=== PATIENT | female | born 1985 | race American Indian/Alaskan Native ===

== ENCOUNTER 2017-09-27 11:04 | Emergency (ER) | payer SELFPAY ==
[2017-09-27] MEDS ORDERED: TYLENOL ONE (13:56)
[2017-09-27] MEDS ORDERED: TYLENOL PO ONE (14:00)
[2017-09-27] MEDS ORDERED: MOTRIN PO ONE (14:35)
--- NOTE | 2017-09-27 15:04 | Emergency Department Report ---
ED Lower Extremity HPI - General Chief Complaint: Extremity Injury, Lower Stated Complaint: ANKLE INJURY Time Seen by Provider: 09/27/17 14:26 Source: patient Mode of arrival: Ambulatory Limitations: No Limitations - History of Present Illness Initial Comments: This is a 32-year-old female nontoxic, well nourished in appearance, no acute signs of distress presents to the ED with c/o of bilateral ankle pain (more on the left), left foot pain, and right tib/fib pain status post fall that occurred yesterday. Patient stated that she feel into a mattress and foundation sewer. Patient stated that she did not have any trauma to the head or any other extremities. Patient denies any joint redness, joint swelling, fever, chills, nausea, vomiting, chest pain or shortness breath. Patient denies abnormal or decreased gait. Patient denies any allergies or PMH. MD Complaint: leg injury, ankle injury, foot injury, fall -: Last night Injury: Leg: Left, Ankle: Right, Left, Foot: Right Type of Injury: inversion Place: street/outdoors Severity: mild Severity scale (0 -10): 8 Improves With: immobilization Worsens With: weight bearing, movement Context: fall Associated Symptoms: swelling, able to partially bear weight, ambulatory. denies: snap/pop sensation, numbness, tingling, unable to bear weight - Related Data Previous Rx's Medication Instructions Recorded Last Taken Type Ibuprofen [Motrin] 600 mg PO Q8H PRN #30 tablet 09/27/17 Unknown Rx Allergies Allergy/AdvReac Type Severity Reaction Status Date / Time No Known Allergies Allergy Unverified 09/27/17 11:13 ED Review of Systems ROS: Stated complaint: ANKLE INJURY Other details as noted in HPI Constitutional: denies: chills, fever Eyes: denies: eye pain, eye discharge, vision change ENT: denies: ear pain, throat pain Respiratory: denies: cough, shortness of breath, wheezing Cardiovascular: denies: chest pain, palpitations Endocrine: no symptoms reported Gastrointestinal: denies: abdominal pain, nausea, diarrhea Genitourinary: denies: urgency, dysuria, discharge Musculoskeletal: arthralgia. denies: back pain, joint swelling Skin: denies: rash, lesions Neurological: denies: headache, weakness, paresthesias Psychiatric: denies: anxiety, depression Hematological/Lymphatic: denies: easy bleeding, easy bruising ED Past Medical Hx - Past Medical History Previous Medical History?: No - Surgical History Past Surgical History?: Yes Additional Surgical History: right hand surgery - Social History Smoking Status: Current Every Day Smoker Substance Use Type: Alcohol, Marijuana - Medications Home Medications: Home Medications Medication Instructions Recorded Confirmed Last Taken Type Ibuprofen [Motrin] 600 mg PO Q8H PRN #30 tablet 09/27/17 Unknown Rx ED Physical Exam - General Limitations: No Limitations General appearance: alert, in no apparent distress - Head Head exam: Present: atraumatic, normocephalic - Eye Eye exam: Present: normal appearance Pupils: Present: normal accommodation - ENT ENT exam: Present: normal exam, mucous membranes moist - Neck Neck exam: Present: normal inspection, full ROM. Absent: tenderness, meningismus, lymphadenopathy - Respiratory Respiratory exam: Present: normal lung sounds bilaterally. Absent: respiratory distress, wheezes, rales, rhonchi, stridor, chest wall tenderness, accessory muscle use, decreased breath sounds, prolonged expiratory - Cardiovascular Cardiovascular Exam: Present: regular rate, normal rhythm, normal heart sounds. Absent: irregular rhythm, systolic murmur, diastolic murmur, rubs, gallop - GI/Abdominal GI/Abdominal exam: Present: soft, normal bowel sounds. Absent: distended, tenderness, guarding, rebound, rigid, diminished bowel sounds - Rectal Rectal exam: Present: deferred - Extremities Exam Extremities exam: Present: normal inspection, full ROM, tenderness, normal capillary refill. Absent: joint swelling - Expanded Lower Extremity Exam Left Hip exam: Present: normal inspection (bilateral exam), full ROM (bilateral exam) . Absent: tenderness (bilateral exam), swelling (bilateral exam) Upper Leg exam: Present: normal inspection (bilateral exam), full ROM ( bilateral exam). Absent: tenderness (bilateral exam), swelling (bilateral exam) Knee exam: Present: normal inspection (bilateral exam), full ROM (bilateral exam ). Absent: tenderness (bilateral exam), swelling (bilateral exam) Lower Leg exam: Present: normal inspection (bilateral exam), full ROM ( bilateral exam), tenderness (right tib/fib region). Absent: swelling ( bilateral exam), abrasion (bilateral exam), laceration (bilateral exam), ecchymosis (bilateral exam), deformity (bilateral exam), crepidus (bilateral exam), dislocation (bilateral exam), erythema (bilateral exam), palpable cord ( bilateral exam), Marty's sign (bilateral exam) Ankle exam: Present: normal inspection (bilateral exam), full ROM (bilateral exam), tenderness (bilateral exam). Absent: swelling (bilateral exam), abrasion (bilateral exam), laceration (bilateral exam), ecchymosis (bilateral exam), deformity (bilateral exam), crepidus (bilateral exam), dislocation ( bilateral exam), erythema (bilateral exam), anterior draw sign (bilateral exam) Foot/Toe exam: Present: normal inspection (bilateral exam), full ROM (bilateral exam), tenderness (left foot). Absent: swelling (bilateral exam), abrasion ( bilateral exam), laceration (bilateral exam), ecchymosis, deformity (bilateral exam), crepidus (bilateral exam), dislocation (bilateral exam), erythema ( bilateral exam), amputation (bilateral exam), puncture wound (bilateral exam), foreign body (bilateral exam), calcaneal tenderness (bilateral exam), tenderness at base of 5th metatarsal (bilateral exam), nail avulsion (bilateral exam), subungual hematoma (bilateral exam) Neuro vascular tendon exam: Present: no vascular compromise (bilateral exam). Absent: pulse deficit, abnormal cap refill, motor deficit, sensory deficit, tendon deficit, extremity cold to touch, pallor, abnormal 2-point discrimination , decreased fine/light touch, foot drop, peroneal nerve deficit, significant pain with passive ROM of distal joint Gait: Positive: observed and limited by pain (bilateral exam) - Back Exam Back exam: Present: normal inspection, full ROM. Absent: tenderness, CVA tenderness (R), CVA tenderness (L), muscle spasm, paraspinal tenderness, vertebral tenderness, rash noted - Neurological Exam Neurological exam: Present: alert, oriented X3, normal gait - Psychiatric Psychiatric exam: Present: normal affect, normal mood - Skin Skin exam: Present: warm, dry, intact, normal color. Absent: rash ED Course Vital Signs 09/27/17 09/27/17 11:09 14:07 Temperature 97.9 F Pulse Rate 96 H Respiratory 20 18 Rate Blood Pressure 127/79 O2 Sat by Pulse 99 Oximetry - Reevaluation(s) Reevaluation #1: 09/27/17 15:06 Patient is speaking in full sentences with no signs of distress noted. ED Lower Extremity MDM - Medical Decision Making This is a 32-year-old female that presents with multiple lower extremities pain. Patient is stable and was examined by me. I referred patient to an orthopedic doctor for further evaluation for possible MRI. X-ray has been obtained and dictated by the radiologist. Patient is notified of the x-ray report with noted by the patient. Patient does have normal gait with no tenderness and no joint swelling. No ecchymosis. no joint redness or swelling. Not warm to touch. No signs of cellulites present. Patient received a ankle stirrup of right ankle and crutches and was educated by RN how to use crutches Patient was instructed to RICE therapy. Patient received Motrin for pain. Patient is discharged with Motrin. At time of discharge, the patient does not seem toxic or ill in appearance. No acute signs of distress noted. Patient agrees to discharge treatment plan of care. No further questions noted by the patient. Critical care attestation.: If time is entered above; I have spent that time in minutes in the direct care of this critically ill patient, excluding procedure time. ED Disposition Clinical Impression: Ankle sprain Qualifiers: Encounter type: initial encounter Involved ligament of ankle: unspecified ligament Laterality: unspecified laterality Qualified Code(s): S93.409A - Sprain of unspecified ligament of unspecified ankle, initial encounter Strain of foot, left Qualifiers: Encounter type: initial encounter Qualified Code(s): S96.912A - Strain of unspecified muscle and tendon at ankle and foot level, left foot, initial encounter Disposition: TO HOME OR SELFCARE Is pt being admited?: No Does the pt Need Aspirin: No Condition: Stable Instructions: Ankle Sprain (ED), Ankle Stirrup Splint (ED), Crutch Instructions (ED), RICE Therapy (ED), Ibuprofen (By mouth) Additional Instructions: Follow-up with a orthopedic doctor in 3-5 days or if symptoms worsen and continue return to emergency room as soon as possible. Prescriptions: Ibuprofen [Motrin] 600 mg PO Q8H PRN #30 tablet PRN Reason: Pain Referrals: PRIMARY CARE, [Primary Care Provider] - 3-5 Days FRANKIE ROBERSON MD [Staff Physician] - 3-5 Days [facility] [Outside] - [facility] - [facility]5 Days Forms: Work/School Release Form(ED)
--- NOTE | 2017-09-27 15:42 | XRay Report ---
RIGHT TIBIA AND FIBULA RADIOGRAPHS INDICATION: Fall, pain. COMPARISON: None similar. FINDINGS: AP and lateral right tibia and fibula radiographs demonstrate intact bones. Approximately 0.4 cm ossific density inferior to the distal fibula appears well-corticated, possibly an ossicle versus old posttraumatic. Mild overlying soft tissue swelling though not excluded. Included knee and ankle articulations appear unremarkable. CONCLUSION: Intact right tibia and fibula, though right ankle slight soft tissue swelling laterally not entirely excluded. Please correlate. Thank you for the opportunity to participate in this patient's care.
--- NOTE | 2017-09-27 15:45 | XRay Report ---
LEFT FOOT RADIOGRAPHS INDICATION: Fall, pain. COMPARISON: None similar. FINDINGS: AP, lateral and oblique views of the left foot demonstrate intact bones and joints. Slight plantar calcaneal spurring may be developing. Mild dorsal soft tissue swelling questioned on the lateral view. CONCLUSION: No acute bony abnormality with few other findings, as described. Please correlate. Thank you for the opportunity to participate in this patient's care.
--- NOTE | 2017-09-27 15:48 | XRay Report ---
BILATERAL ANKLE RADIOGRAPHS INDICATION: Fall, pain. COMPARISON: None similar at this institution. FINDINGS: AP, lateral and oblique bilateral ankle radiographs demonstrate intact mortise, malleoli and talar dome contours. Slight plantar calcaneal spurring may be developing bilaterally. Approximately 4 mm ossific density inferior to the right distal fibula appears well corticated, possibly an ossicle versus old post traumatic. Slight overlying right ankle soft tissue swelling laterally also not entirely excluded. CONCLUSION: No acute ankle fracture with few other findings, as above. Please correlate. Thank you for the opportunity to participate in this patient's care.
[2017-09-27 16:50] VITALS: BP 120/74
== END 2017-09-27 16:51 | disposition home or self-care (01) ==
LOC: ED 11:04
DX: S93.402A Sprain of unspecified ligament of left ankle, initial encounter (principal); S93.401A Sprain of unspecified ligament of right ankle, initial encounter; S96.912A Strain of unspecified muscle and tendon at ankle and foot level, left foot, initial encounter; F17.200 Nicotine dependence, unspecified, uncomplicated; F12.10 Cannabis abuse, uncomplicated; W17.1XXA Fall into storm drain or manhole, initial encounter; Y93.89 Activity, other specified; Y92.89 Other specified places as the place of occurrence of the external cause; Y99.8 Other external cause status
CPT/HCPCS: 99283

== ENCOUNTER 2018-08-27 08:26 | Emergency (ER) | payer SELFPAY ==
[2018-08-27] MEDS ORDERED: ROBITUSSIN PO ONE (09:45)
--- NOTE | 2018-08-27 10:25 | XRay Report ---
Chest 2 views: History: Cough. Findings: Normal cardiomediastinal silhouette. Trachea is midline. No consolidation, pneumothorax or pleural effusion. Impression: No acute cardiopulmonary findings.
--- NOTE | 2018-08-27 10:40 | Emergency Department Report ---
Minor Respiratory - HPI Chief Complaint: Upper Respiratory Infection Stated Complaint: CHEST PAIN Time Seen by Provider: 08/27/18 09:16 Duration: 5 Days Pain Location: Nose, Chest Minor Respiratory: Yes Able to Tolerate Fluids, No Rhinorrhea, No Sore Throat, No Ear Pain, No Cough, No Sick Contacts, No Hemoptysis, No Chest Pain, No Shortness of Breath, No Fever Other History: [id number] female presents to ED complaining of cough and congestion times one week. Patient states cough is dry and nonproductive. She denies any history of asthma. She denies nausea vomiting diarrhea abdominal pain fever. The problems. ED Review of Systems ROS: Stated complaint: CHEST PAIN Other details as noted in HPI Comment: All other systems reviewed and negative ED Past Medical Hx - Past Medical History Previous Medical History?: No - Surgical History Past Surgical History?: Yes Additional Surgical History: right hand surgery, myomectomy - Social History Smoking Status: Current Some Day Smoker Substance Use Type: Alcohol - Medications Home Medications: Home Medications Medication Instructions Recorded Confirmed Last Taken Type Ibuprofen [Motrin 600 MG tab] 600 mg PO Q8H PRN #30 tablet 08/27/18 Unknown Rx guaiFENesin [Robitussin] 200 mg PO Q6HR #80 ml 08/27/18 Unknown Rx Minor Respiratory Exam - Exam General: Vital signs noted. No distress. Alert and acting appropriately. HEENT: Yes Moist Mucous Membranes, No Pharyngeal Erythema, No Pharyngeal Exudates, No Rhinorrhea, No Conjuctival Injection, No Frontal Tenderness, No Maxillary Tenderness Ear: Neither TM Bulge, Neither TM Erythema, Neither EAC Pain, Neither EAC Discharge Neck: Yes Supple, No Adenopathy Lungs: Yes Good Air Exchange, No Wheezes, No Ronchi, No Stridor, No Cough, No Labored Respirations, No Retractions, No Use of Accessory Muscles, No Other Abnormal Lung Sounds Heart: Yes Regular, No Murmur Abdomen: Yes Normal Bowel Sounds, No Tenderness, No Peritoneal Signs Skin: No Rash, No Edema Neurologic: Alert and oriented, no deficits. Musculoskeletal: Unremarkable. ED Course Vital Signs 08/27/18 08:38 Temperature 97.8 F Pulse Rate 77 Respiratory 22 Rate Blood Pressure 126/81 O2 Sat by Pulse 99 Oximetry ED Medical Decision Making - Medical Decision Making 33-year-old male presents with upper respiratory infection. no fever during the ED stay. Discussed with patient symptomatic relief with [id number] medications. Discussed continue Tylenol and Motrin as needed for fever and pain. Discussed increase fluids and diet intake. Discussed rest much needed. Discussed daily vitamin C for immune booster. Discussed follow-up with care physician in 3-5 days. Patient's mother verbally states she understands and will comply the following instructions and follow-up Vital signs stable. Patient is in no acute distress Critical care attestation.: If time is entered above; I have spent that time in minutes in the direct care of this critically ill patient, excluding procedure time. ED Disposition Clinical Impression: Upper respiratory infection Disposition: [id number] TO HOME OR SELFCARE Is pt being admited?: No Does the pt Need Aspirin: No Condition: Stable Instructions: Viral Syndrome (ED), Upper Respiratory Infection (ED) Additional Instructions: Make sure to follow up with the primary care physician as discussed. Take all your medications as you've been prescribed. If you have any worsening symptoms or develop new symptoms please return to ED immediately. Prescriptions: Ibuprofen [Motrin 600 MG tab] 600 mg PO Q8H PRN #30 tablet PRN Reason: Pain guaiFENesin [Robitussin] 200 mg PO Q6HR #80 ml Referrals: [facility] [Other] - 3-5 Days [facility] [Outside] - 3-5 Days [facility] [Outside] - 3-5 Days Forms: Accompanied Note, Work/School Release Form(ED) Time of Disposition: 10:48
[2018-08-27 11:05] VITALS: BP 124/80
== END 2018-08-27 11:03 | disposition home or self-care (01) ==
LOC: ED 08:26
DX: J06.9 Acute upper respiratory infection, unspecified (principal); F17.200 Nicotine dependence, unspecified, uncomplicated
CPT/HCPCS: 71046; 99283